=== PATIENT | male | born 1955 | race Caucasian/White ===

== ENCOUNTER 2022-07-09 20:12 | Emergency (ER) | payer MEDICARE, OTHER ==
[~2022-07-09] VITALS: Ht 182.9 cm; Wt 104.5 kg
[2022-07-09 20:32] VITALS: BP 150/80
== END 2022-07-10 01:27 | disposition home or self-care (01) ==
LOC: ER 20:13
DX: K56.41 Fecal impaction (principal); G89.29 Other chronic pain; M54.9 Dorsalgia, unspecified
CPT/HCPCS: 99281